=== PATIENT | female | born 1955 | race Caucasian/White ===

== ENCOUNTER 2018-06-17 13:35 | Emergency (ER) | payer BC ==
[2018-06-17] MEDS: KETOROLAC 30 MG INJ IM (15:32)
[2018-06-17] MEDS: CYCLOBENZAPRINE 10 MG TAB PO (15:32)
== END 2018-06-17 16:13 | disposition home or self-care (01) ==
LOC: FTE 13:35
DX: M54.31 Sciatica, right side (principal); M54.32 Sciatica, left side
CPT/HCPCS: 96372; 99284-25; J1885